=== PATIENT | male | born 1950 | race African-American/Black ===

== ENCOUNTER 2019-11-21 16:51 | Emergency (ER) | payer SELFPAY ==
--- NOTE | 2019-11-21 17:15 | ED ---
Abdominal Pain HPI - General Chief Complaint: Abdominal Pain Stated Complaint: hernia-sent by [employer] Time Seen by Provider: 11/21/19 17:00 Source: patient, RN notes reviewed, old records reviewed Mode of arrival: ambulatory Limitations: no limitations - History of Present Illness Initial Comments: This is a 69-year-old male DF sent in by [employer] [email or web address] for evaluation regards to anterior abdominal pain. The bowel. The noted symptoms have been for last day and a half or so and then again worse this morning. Patient with dementia for evaluation and sent him here for evaluation of significant pain. Patient is having bowel movements with mild nausea no vomiting. No prior history of abdominal surgery MD Complaint: abdominal pain, flank pain -: days(s) Location: LLQ, RLQ Radiation: suprapubic Migration to: LLQ, RLQ Severity scale (1-10): 7 Quality: aching Consistency: constant Improves With: nothing Worsens With: nothing Associated Symptoms: nausea, constipation - Related Data Allergies Allergy/AdvReac Type Severity Reaction Status Date / Time No Known Allergies Allergy Verified 11/21/19 16:56 Review of Systems ROS Statement: Those systems with pertinent positive or pertinent negative responses have been documented in the HPI. ROS Other: All systems not noted in ROS Statement are negative. Past Medical History Past Medical History: Hyperlipidemia, Hypertension History of Any Multi-Drug Resistant Organisms: None Reported Past Surgical History: No Surgical Hx Reported Past Psychological History: No Psychological Hx Reported Smoking Status: Never smoker Past Alcohol Use History: None Reported Past Drug Use History: None Reported General Exam Limitations: no limitations General appearance: alert, in no apparent distress Head exam: Present: atraumatic, normocephalic, normal inspection Eye exam: Present: normal appearance, PERRL, EOMI. Absent: scleral icterus, conjunctival injection, periorbital swelling ENT exam: Present: normal exam, mucous membranes moist Neck exam: Present: normal inspection. Absent: tenderness, meningismus, lymphadenopathy Respiratory exam: Present: normal lung sounds bilaterally. Absent: respiratory distress, wheezes, rales, rhonchi, stridor Cardiovascular Exam: Present: regular rate, normal rhythm, normal heart sounds. Absent: systolic murmur, diastolic murmur, rubs, gallop, clicks GI/Abdominal exam: Present: soft, normal bowel sounds. Absent: distended, tenderness, guarding, rebound, rigid Extremities exam: Present: normal inspection, full ROM, normal capillary refill. Absent: tenderness, pedal edema, joint swelling, calf tenderness Back exam: Present: normal inspection Neurological exam: Present: alert, oriented X3, CN II-XII intact Psychiatric exam: Present: normal affect, normal mood Skin exam: Present: warm, dry, intact, normal color. Absent: rash Course Vital Signs 11/21/19 11/21/19 16:53 18:55 Temperature 98.1 F 98.6 F Pulse Rate 68 60 Respiratory 20 14 Rate Blood Pressure 130/80 133/76 O2 Sat by Pulse 100 98 Oximetry - Reevaluation(s) Reevaluation #1: medical record is reviewed patient symptoms siginficantly improved informed patient of results, questions answered and ok for discharge, - Consultations Consultation #1: Spoke with Dr. Padilla will see patient in the office Medical Decision Making - Medical Decision Making 69 male to the ER with abdominal hernia, nonincarcerated restraining related easily reduced and patient can be discharged - Lab Data Result diagrams: 11/21/19 17:18 11/21/19 17:18 Lab Results 11/21/19 11/21/19 11/21/19 Range/Units 17:18 17:18 17:18 WBC 4.9 (3.8-10.6) k/uL RBC 4.93 (4.30-5.90) m/uL Hgb 13.3 (13.0-17.5) gm/dL Hct 43.5 (39.0-53.0) % MCV 88.3 (80.0-100.0) fL MCH 26.9 (25.0-35.0) pg MCHC 30.5 L (31.0-37.0) g/dL RDW 13.3 (11.5-15.5) % Plt Count 118 L (150-450) k/uL Neutrophils % 47 % Lymphocytes % 39 % Monocytes % 5 % Eosinophils % 5 % Basophils % 1 % Neutrophils # 2.3 (1.3-7.7) k/uL Lymphocytes # 1.9 (1.0-4.8) k/uL Monocytes # 0.2 (0-1.0) k/uL Eosinophils # 0.3 (0-0.7) k/uL Basophils # 0.1 (0-0.2) k/uL Hypochromasia Slight Sodium 136 L (137-145) mmol/L Potassium 4.3 (3.5-5.1) mmol/L Chloride 102 (98-107) mmol/L Carbon Dioxide 28 (22-30) mmol/L Anion Gap 6 mmol/L BUN 23 H (9-20) mg/dL Creatinine 1.14 (0.66-1.25) mg/dL Est GFR (CKD-EPI)AfAm 77 (>60 ml/min/1.73 sqM) Est GFR (CKD-EPI)NonAf 67 (>60 ml/min/1.73 sqM) Glucose 90 (74-99) mg/dL Plasma Lactic Acid Partha (0.7-2.0) mmol/L Calcium 9.1 (8.4-10.2) mg/dL Total Bilirubin 0.4 (0.2-1.3) mg/dL AST 24 (17-59) U/L ALT 16 (4-49) U/L Alkaline Phosphatase 40 (38-126) U/L Total Protein 6.8 (6.3-8.2) g/dL Albumin 4.0 (3.5-5.0) g/dL Amylase 76 (30-110) U/L Lipase 99 (23-300) U/L Urine Color Light Yellow Urine Appearance Clear (Clear) Urine pH 7.0 (5.0-8.0) Ur Specific [place] 1.015 (1.001-1.035) Urine Protein Negative (Negative) Urine Glucose (UA) Negative (Negative) Urine Ketones Negative (Negative) Urine Blood Negative (Negative) Urine Nitrite Negative (Negative) Urine Bilirubin Negative (Negative) Urine Urobilinogen <2.0 (<2.0) mg/dL Ur Leukocyte Esterase Negative (Negative) 11/21/19 Range/Units 17:18 WBC (3.8-10.6) k/uL RBC (4.30-5.90) m/uL Hgb (13.0-17.5) gm/dL Hct (39.0-53.0) % MCV (80.0-100.0) fL MCH (25.0-35.0) pg MCHC (31.0-37.0) g/dL RDW (11.5-15.5) % Plt Count (150-450) k/uL Neutrophils % % Lymphocytes % % Monocytes % % Eosinophils % % Basophils % % Neutrophils # (1.3-7.7) k/uL Lymphocytes # (1.0-4.8) k/uL Monocytes # (0-1.0) k/uL Eosinophils # (0-0.7) k/uL Basophils # (0-0.2) k/uL Hypochromasia Sodium (137-145) mmol/L Potassium (3.5-5.1) mmol/L Chloride (98-107) mmol/L Carbon Dioxide (22-30) mmol/L Anion Gap mmol/L BUN (9-20) mg/dL Creatinine (0.66-1.25) mg/dL Est GFR (CKD-EPI)AfAm (>60 ml/min/1.73 sqM) Est GFR (CKD-EPI)NonAf (>60 ml/min/1.73 sqM) Glucose (74-99) mg/dL Plasma Lactic Acid Partha 0.7 (0.7-2.0) mmol/L Calcium (8.4-10.2) mg/dL Total Bilirubin (0.2-1.3) mg/dL AST (17-59) U/L ALT (4-49) U/L Alkaline Phosphatase (38-126) U/L Total Protein (6.3-8.2) g/dL Albumin (3.5-5.0) g/dL Amylase (30-110) U/L Lipase (23-300) U/L Urine Color Urine Appearance (Clear) Urine pH (5.0-8.0) Ur Specific [place] (1.001-1.035) Urine Protein (Negative) Urine Glucose (UA) (Negative) Urine Ketones (Negative) Urine Blood (Negative) Urine Nitrite (Negative) Urine Bilirubin (Negative) Urine Urobilinogen (<2.0) mg/dL Ur Leukocyte Esterase (Negative) - Radiology Data Radiology results: report reviewed (CT abdomen and pelvis does show an umbilical, abdominal hernia), image reviewed Disposition Clinical Impression: Umbilical hernia Disposition: HOME SELF-CARE Condition: Good Instructions (If sedation given, give patient instructions): Umbilical Hernia (ED) Is patient prescribed a controlled substance at d/c from ED?: No Referrals: Pravin Padilla MD [STAFF PHYSICIAN] - 1-2 days
[2019-11-21 17:36] LABS: Basophils # (A) 0.1 k/uL (0-0.2); Basophils % (A) 1 %; Eosinophils # (A) 0.3 k/uL (0-0.7); Eosinophils % (A) 5 %; HCT 43.5 % (39.0-53.0); HGB 13.3 gm/dL (13.0-17.5); Hypochromasia Slight; Lymphocytes # (A) 1.9 k/uL (1.0-4.8); Lymphocytes % (A) 39 %; MCH 26.9 pg (25.0-35.0); MCHC 30.5 g/dL (31.0-37.0); MCV 88.3 fL (80.0-100.0); Mean Platelet Volume 8.4; Monocytes # (A) 0.2 k/uL (0-1.0); Monocytes % (A) 5 %; Neutrophils # (A) 2.3 k/uL (1.3-7.7); Neutrophils % (A) 47 %; Platelet Count 118 k/uL (150-450); RBC 4.93 m/uL (4.30-5.90); RDW 13.3 % (11.5-15.5); WBC 4.9 k/uL (3.8-10.6)
[2019-11-21 17:37] LABS: Appearance,Urine Clear (Clear); Bilirubin,Urine Negative (Negative); Blood,Urine Negative (Negative); Color,Urine Light Yellow; Glucose,Urine (UA) Negative (Negative); Ketones,Urine Negative (Negative); Leukocyte Esterase,Urine Negative (Negative); Nitrite,Urine Negative (Negative); Protein,Urine Negative (Negative); Specific Gravity,Urine 1.015 (1.001-1.035); Urobilinogen,Urine <2.0 mg/dL (<2.0)
[2019-11-21 17:44] LABS: Calcium 9.1 mg/dL (8.4-10.2); Potassium 4.3 mmol/L (3.5-5.1); Total Bilirubin 0.4 mg/dL (0.2-1.3); Total Protein 6.8 g/dL (6.3-8.2)
--- NOTE | 2019-11-21 18:36 | CT ---
EXAMINATION TYPE: CT abdomen pelvis w con DATE OF EXAM: 11/21/2019 COMPARISON: None HISTORY: Right inguinal pain. CT DLP: 1131.5 mGycm Automated exposure control for dose reduction was used. CONTRAST: Performed with IV Contrast, patient injected with 100ml mL of Isovue 300. Images obtained from the diaphragm to the floor the pelvis with IV contrast Isovue 100 mL. There is mild subsegmental atelectasis at the lung bases. Heart appears normal. There is no pericardi al effusion. Liver spleen stomach pancreas gallbladder appear normal. Bile ducts are not dilated. There is no adrenal mass. Kidneys show satisfactory contrast opacification. There is no hydronephrosi s. Ureters are not dilated. The delayed images show normal renal excretion. There is no retroperitone al adenopathy. There is broad-based umbilical hernia that contains large and small bowel. There is no incarceration. Bladder distends smoothly. Prostate is moderately enlarged and measures 6.4 cm. There is no inguinal hernia. There is no free fluid in the pelvis. There is no mesenteric edema. There is no ascites or free air. There is no sign of bowel obstruction. Lumbar vertebra have normal alignment. There is no compression fracture. Bony pelvis appears intact. The hip joints appear intact. Appendix is not seen. There is no sign of thickened appendix. IMPRESSION: Broad-based umbilical hernia. Moderate enlargement of the prostate gland. No acute abnormality in the abdomen pelvis.
[2019-11-21] MEDS ORDERED: ACET/COD 300 MG/30 MG STARTER PACK 6 TAB BTL PO STA (18:42)
[2019-11-21 18:56] VITALS: BP 133/76; PULSE 60; RESP 14; TEMP 98.6
== END 2019-11-21 18:59 | disposition home or self-care (01) ==
LOC: EC 16:51
DX: K42.9 Umbilical hernia without obstruction or gangrene (principal); R11.0 Nausea
CPT/HCPCS: 36415; 80053; 82150; 83605; 83690; 85025; 81003; 74177; 99284; Q9967

== ENCOUNTER 2020-02-02 19:31 | Emergency (ER) | payer MEDICARE, OTHER ==
[2020-02-02 19:41] VITALS: BP 158/89; PULSE 72; RESP 18; TEMP 97.9
--- NOTE | 2020-02-02 20:21 | ED ---
General Adult HPI - General Chief complaint: Recheck/Abnormal Lab/Rx Stated complaint: Medication Refill Time Seen by Provider: 02/02/20 19:49 Source: patient, RN notes reviewed, old records reviewed Mode of arrival: ambulatory Limitations: no limitations - History of Present Illness Initial comments: 69-year-old male patient proceeded for chief complaint of med refill. 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 Patient reports that he had a 3 month prescription of his medications amlodipine atorvastatin simple which are running outside and he is requesting refills he will be here for another couple weeks at least. Denies any other acute complaints. Systemic: Pt denies fatigue, fever/chills, rash. Pt denies weakness, night sweats, weight loss. Neuro: Pt denies headache, visual disturbances, syncope or pre-syncope. HEENT: Pt denies ocular discharge or irritation, otalgia, rhinorrhea, pharyngitis or notable lymphadenopathy. Cardiopulmonary: Pt denies chest pain, SOB, heart palpitations, dyspnea on exertion. Abdominal/GI: Pt denies abdominal pain, n/v/d. : Pt denies dysuria, burning w/ urination, frequency/urgency. Denies new onset urinary or bowel incontinence. MSK: Pt denies myalgia, loss of strength or function in extremities. Neuro: Pt denies new onset weakness, paresthesias. - Related Data Previous Rx's Medication Instructions Recorded Atorvastatin [Lipitor] 20 mg PO DAILY 30 Days #30 tablet 02/02/20 Lisinopril [Prinivil] 10 mg PO DAILY 30 Days #30 tab 02/02/20 amLODIPine [Norvasc] 10 mg PO DAILY 30 Days #30 tablet 02/02/20 Allergies Allergy/AdvReac Type Severity Reaction Status Date / Time No Known Allergies Allergy Verified 02/02/20 19:41 Review of Systems ROS Statement: Those systems with pertinent positive or pertinent negative responses have been documented in the HPI. ROS Other: All systems not noted in ROS Statement are negative. Past Medical History Past Medical History: Hyperlipidemia, Hypertension History of Any Multi-Drug Resistant Organisms: None Reported Past Surgical History: No Surgical Hx Reported Past Psychological History: No Psychological Hx Reported Smoking Status: Never smoker Past Alcohol Use History: None Reported Past Drug Use History: None Reported General Exam - General Exam Comments Initial Comments: Constitutional: NAD, AOX3, Pt has pleasant affect. HEENT: NC/AT, trachea midline, neck supple, no lymphadenopathy. External ears appear normal, without discharge. Mucous membranes moist. Eyes PERRLA, EOM intact. There is no scleral icterus. No pallor noted. Cardiopulmonary: RRR, no murmurs, rubs or gallops, no JVD noted. Lungs CTAB in anterior and posterior courtney. No peripheral edema. Abdominal exam: Abdomen soft and non-distended. Abdomen non-tender to palpation in all 4 quadrants. Bowel sounds active in LLQ. No hepatosplenomegaly. No ecchymosis Neuro: CN II-XII grossly intact. No nuchal rigidity. No raccon eyes, no yan sign, no hemotympanum. No cervical spinal tenderness. MSK:. Full active ROM in upper and lower extremities, 5/5 stregnth. Limitations: no limitations Course Vital Signs 02/02/20 19:36 Temperature 97.9 F Pulse Rate 72 Respiratory 18 Rate Blood Pressure 158/89 O2 Sat by Pulse 99 Oximetry Medical Decision Making - Medical Decision Making 69-year-old male patient presents to ED for evaluation of medication refill. The medication from [facility] no refill. Amlodipine atorvastatin fosinopril. Patient was given a primary care provider to follow up with the [facility] ER if any worsening symptoms. Case discussed with Dr. Franks. Disposition Clinical Impression: Encounter for medication refill Disposition: HOME SELF-CARE Condition: Stable Instructions (If sedation given, give patient instructions): Medicine Refill (E D) Additional Instructions: Follow up with PCP tomorrow. Return to ED with any worsening symptoms. Prescriptions: Atorvastatin [Lipitor] 20 mg PO DAILY 30 Days #30 tablet amLODIPine [Norvasc] 10 mg PO DAILY 30 Days #30 tablet Lisinopril [Prinivil] 10 mg PO DAILY 30 Days #30 tab Is patient prescribed a controlled substance at d/c from ED?: No Referrals: Nonstaff,Physician [Primary Care Provider] - 1-2 days Mateo Duong MD [REFERRING] - 1-2 days
== END 2020-02-02 21:04 | disposition home or self-care (01) ==
LOC: EC 19:31
DX: Z76.0 Encounter for issue of repeat prescription (principal)
CPT/HCPCS: 99282